=== PATIENT | male | born 1965 | race Caucasian/White ===

== ENCOUNTER → 2018-10-19 | Outpatient (CLI) | payer OTHER ==
--- NOTE | 2018-10-24 00:23 | SLEEPCENT ---
DATE OF PROCEDURE: 10/19/2018 ORDERED BY: Luciana Cardenas at the [facility]. Nocturnal polysomnography was performed for titration of pressure therapy in this patient with complex and obstructive sleep apnea syndrome. For testing, a [employer]ate3D Simplus full face mask of medium size was used. An initial pressure of 4 cm of water was applied to the circuit and the lights were extinguished. 7 hours and 33 minutes of data were reviewed. There were 415 minutes of sleep identified. Sleep latency was mildly prolonged at 22 minutes. Rapid eye movement (REM) latency was normal at 90 minutes. Sleep architecture was good with three REM cycles. Overall sleep efficiency was 93.7%. The electrocardiogram showed a sinus rhythm with an average heart rate of 62 beats per minute. Rate ranged 58-78. EEG showed some minor alpha intrusion into non-REM stages. No focal events were seen, and there were normal waveforms for awake and sleep. Persistence of respiratory events prompted an increase in pressure therapy and despite optimal mask fit and minimal air leak, the patient was changed to a bilevel device. The emergence of central apneas early in the study prompted the addition of a backup rate. Best sleep was seen on a bilevel device, inspiratory 15 over expiratory 11 with a backup rate of 8 . There was minimal activity in the limb EMG leads. Snoring was palliated with pressure therapy and remaining measures of sleep physiology were normal. IMPRESSION: Complex obstructive sleep apnea syndrome (G47.31, G47.33). RECOMMENDATIONS: Nightly use of pressure therapy using a bilevel device with backup rate, inspiratory of 15 over expiratory 11, backup rate 8. MTDD
== END ==
LOC: M SLEEP 19:47
PROVIDERS: ATTEND Nurse Practitioner Family
DX: G47.33 Obstructive sleep apnea (adult) (pediatric) (principal); G47.31 Primary central sleep apnea

== ENCOUNTER → 2019-09-17 | Outpatient (CLI) | payer OTHER ==
[~2019-09-17] MED LIST: E-Z-GAS II EFFERVESCENT PACKET (SODIUM BICARB./CITRIC ACID/SIMETHICONE) As Ordered ONE; E-Z-HD 98% w/w 340GM SUSP BTL As Ordered ONE; E-Z-PAQUE 96% w/w SUSP 176GM BTL As Ordered ONE
--- NOTE | 2019-09-17 19:52 | REP ---
Esophagram The procedure was performed under the direct supervision of Dr. Farias. The images were reviewed with Dr. Farias. A single view PA chest x-ray is submitted as a hockey scout film. The superior mediastinal structures are midline. The heart size is within normal limits. The lungs are clear. Liquid barium and gas producing granules were given in the erect position as well as liquid barium in the prone oblique positions in order to perform a double contrast esophagram examination. The oral and pharyngeal stages of deglutition are unremarkable. Note is made of degenerative disc disease with osteophyte formation especially at the C4-5 level which causes mild impression on the posterior esophagus. Esophageal transport is prompt and efficient and there is no esophagitis, stricture, mucosal ring or hiatal hernia. Gastroesophageal reflux is not demonstrated on this examination. Impression: Degenerative disc disease with osteophyte formation especially at the C4-5 level which causes mild impression on the posterior esophagus. Otherwise unremarkable esophagram examination. 0.6 minutes of fluoro time was utilized for this procedure. Electronically Signed by DAVID Duque 09/17/2019 04:13 P Electronically Signed by Jayson Farias MD 09/17/2019 07:42 P
== END ==
LOC: M RAD 08:15
PROVIDERS: ATTEND Otolaryngology
DX: K21.9 Gastro-esophageal reflux disease without esophagitis (principal)

== ENCOUNTER → 2019-12-02 | Outpatient (REF) | payer OTHER | LOC: M LAB REF 07:17 | PROVIDERS: ATTEND Dermatology | DX: D49.2 Neoplasm of unspecified behavior of bone, soft tissue, and skin (principal) | CPT/HCPCS: 11102; 11103; 88304; 88305; G0463 ==

== ENCOUNTER → 2019-12-17 | Outpatient (REF) | payer OTHER | LOC: M LAB REF 18:21 | PROVIDERS: ATTEND Dermatology | DX: C44.619 Basal cell carcinoma of skin of left upper limb, including shoulder (principal) ==

== ENCOUNTER → 2019-12-30 | Outpatient (REF) | payer OTHER | LOC: M LAB REF 10:32 | PROVIDERS: ATTEND Dermatology | DX: C76.0 Malignant neoplasm of head, face and neck (principal) ==

== ENCOUNTER → 2020-08-12 | Outpatient (CLI) | payer OTHER, MEDICARE ==
[~2020-08-12] MED LIST changes: +CHLO4TAB PO; +CLON0.25 PO; +CLON0.5T17 PO; +COLLCAP PO; +COLLPOW8 XX; +CVS1CAP2 PO; +DEPA500T2 PO; -E-Z-GAS II EFFERVESCENT PACKET (SODIUM BICARB./CITRIC ACID/SIMETHICONE) As Ordered ONE; -E-Z-HD 98% w/w 340GM SUSP BTL As Ordered ONE; -E-Z-PAQUE 96% w/w SUSP 176GM BTL As Ordered ONE; +ECHI80CA PO; +FISH1000 PO; +GEMF600T5 PO; +HAIRTAB10 PO; +LITH300C PO; +MCTPAK PO; +MELA1TAB19 PO; +MULT-90 PO; +OMEP40CA97 PO; +QUET200T2 PO; +ROSU40TA4 PO; +TRAZ1TAB10 PO; +[UNRECOGNIZED DRUG - OTHER] PO; +[UNRECOGNIZED DRUG - OTHER] PO; +[UNRECOGNIZED DRUG - OTHER] PO; +total restore; +vital reds
== END ==
LOC: M LABSMTC 10:15
PROVIDERS: ATTEND Anesthesiology
DX: Z20.828 Contact with and (suspected) exposure to other viral communicable diseases (principal)

== ENCOUNTER 2020-08-17 08:04 | Day surgery (SDC) | payer OTHER ==
[~2020-08-17] VITALS: Ht 167.6 cm; Wt 101.5 kg
[~2020-08-17 08:04] MED LIST changes: +LR 1,000 ML IV ONE
[2020-08-17] MEDS ORDERED: fentaNYL 250 MCG/5 ML INJECTION (J3010) As Ordered ONE (09:36)
[2020-08-17] MEDS ORDERED: LIDOCAINE 2% 100MG/5ML SDV (FOR ANES.) As Ordered ONE (09:36)
[2020-08-17] MEDS ORDERED: propofoL 200 MG/20 ML VIAL As Ordered ONE (09:36)
[2020-08-17] MEDS ORDERED: ROCURONIUM BROMIDE 50 MG/5 ML VIAL As Ordered ONE (09:36)
[2020-08-17] MEDS ORDERED: MIDAZOLAM INJ 2MG/2ML VIAL (J2250 PER 1MG) As Ordered ONE (09:36)
[2020-08-17] MEDS ORDERED: ONDANSETRON 4MG/2ML VIAL As Ordered ONE (09:36)
[2020-08-17] MEDS ORDERED: dexameTHASONE 4 MG/ML 1ML VIAL (J1100 PER 1MG) As Ordered ONE (09:36)
[2020-08-17] MEDS ORDERED: SUGAMMADEX SODIUM 500 MG/5 ML VIAL (BRIDION) As Ordered ONE (11:22)
[2020-08-17] MEDS ORDERED: fentaNYL 100 MCG/2 ML INJECTION (J3010) IV PRN (12:00)
[2020-08-17] MEDS ORDERED: ONDANSETRON 4MG/2ML VIAL IV PRN (12:00)
[2020-08-17] MEDS ORDERED: oxyCODONE 5MG TAB PO PRN (12:00)
[2020-08-17] MEDS ORDERED: LR 1,000 ML IV SCH ×2 (12:00→13:00)
[2020-08-17 13:15] VITALS: BP 160/79
--- NOTE | 2020-08-17 23:36 | ECGEPIP ---
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
== END 2020-08-17 13:34 | disposition home or self-care (01) ==
LOC: M SDC 08:04
PROVIDERS: ATTEND Otolaryngology
DX: J39.8 Other specified diseases of upper respiratory tract (principal); G47.30 Sleep apnea, unspecified; K21.9 Gastro-esophageal reflux disease without esophagitis; E78.5 Hyperlipidemia, unspecified; F31.9 Bipolar disorder, unspecified; F12.10 Cannabis abuse, uncomplicated; F17.210 Nicotine dependence, cigarettes, uncomplicated; Z79.899 Other long term (current) drug therapy; Z88.8 Allergy status to other drugs, medicaments and biological substances
CPT/HCPCS: 42140; 88304; 93005; J1100; J2250; J2405; J3010

== ENCOUNTER → 2022-02-11 | Outpatient (REF) | payer OTHER ==
[~2022-02-11] MED LIST changes: -LR 1,000 ML IV ONE; +OMEP40CA4 PO; -OMEP40CA97 PO
== END ==
LOC: M SFHCDERM 14:42
PROVIDERS: ATTEND Nurse Practitioner Family
DX: D22.5 Melanocytic nevi of trunk (principal)

== ENCOUNTER → 2024-11-28 | Outpatient (CLI) | payer OTHER ==
[~2024-11-28] MED LIST changes: -ROSU40TA4 PO; +ROSU40TA81 PO
== END ==
LOC: M CLY 14:24
PROVIDERS: ATTEND Physician Assistant
DX: M54.50 Low back pain, unspecified (principal); M25.512 Pain in left shoulder

== ENCOUNTER 2025-03-28 13:21 | Emergency (ER) | payer MEDICARE, OTHER ==
[~2025-03-28] VITALS: Ht 167.6 cm; Wt 102.0 kg
[2025-03-28 16:29] VITALS: BP 159/95; TEMP 98.3; O2SAT 100
[2025-03-28] MEDS: LIDOCAINE 1% MDV 20 ML VIAL SC ONE (18:15)
[2025-03-28] MEDS: TETANUS/DIPHTH/ACEL. PERTUSSIS 0.5 ML SYR IM.IMMUN ONE (18:30)
[2025-03-28] MEDS: CEPHALEXIN 500 MG CAP PO ONE (18:33)
[2025-03-28] MEDS ORDERED: CEPH500C PO (18:58)
== END 2025-03-28 19:15 | disposition home or self-care (01) ==
LOC: M ED 13:21
DX: S62.521B Displaced fracture of distal phalanx of right thumb, initial encounter for open fracture (principal); X58.XXXA Exposure to other specified factors, initial encounter; F10.10 Alcohol abuse, uncomplicated; F31.9 Bipolar disorder, unspecified; F17.200 Nicotine dependence, unspecified, uncomplicated; Y92.9 Unspecified place or not applicable; Y93.9 Activity, unspecified; Y99.9 Unspecified external cause status; Z88.8 Allergy status to other drugs, medicaments and biological substances; Z79.899 Other long term (current) drug therapy; Z79.2 Long term (current) use of antibiotics; Z23 Encounter for immunization

== ENCOUNTER 2025-04-04 08:42 | Day surgery (SDC) | payer MEDICARE ==
[~2025-04-04] VITALS: Ht 167.6 cm; Wt 103.4 kg
[~2025-04-04 08:42] MED LIST changes: +CEPH500C PO; +FENO145T7 PO; +VITALIQ60 MC; +ZINC100T3 PO
[2025-04-04] MEDS ORDERED: LR 1,000 ML IV SCH (09:10)
[2025-04-04] MEDS ORDERED: MIDAZOLAM INJ 2 MG/2 ML VIAL As Ordered ONE (09:30)
[2025-04-04] MEDS ORDERED: LIDOCAINE 2% 100 MG/5 ML SDV (FOR ANES.) As Ordered ONE (09:32)
[2025-04-04] MEDS ORDERED: dexAMETHasone 4 MG/ML 1 ML VIAL As Ordered ONE (09:33)
[2025-04-04] MEDS: LIDOCAINE 1% SDV 30 ML VIAL As Ordered ONE (09:45)
[2025-04-04] MEDS: ceFAZolin SOD 2 GM IV ONCE IV ONE (10:10)
[2025-04-04] MEDS ORDERED: traMADol 50 MG TAB PO ONE (11:20)
[2025-04-04] MEDS ORDERED: HYDROMORPHONE HCL 0.5 MG/0.5 ML SYRINGE IV PRN (11:20)
[2025-04-04 12:15] VITALS: BP 145/71; TEMP 97.1; O2SAT 98
== END 2025-04-04 12:50 | disposition home or self-care (01) ==
LOC: M SDC 08:42
PROVIDERS: ATTEND Orthopaedic Surgery Hand Surgery
DX: S62.524B Nondisplaced fracture of distal phalanx of right thumb, initial encounter for open fracture (principal); S61.101A Unspecified open wound of right thumb with damage to nail, initial encounter; X58.XXXA Exposure to other specified factors, initial encounter; Y93.9 Activity, unspecified; Y92.9 Unspecified place or not applicable; Z79.899 Other long term (current) drug therapy; Z87.891 Personal history of nicotine dependence
CPT/HCPCS: 11760; 26755; 76000; 93005; J0665; J0690; J1100; J2250; J3010

== ENCOUNTER → 2025-04-11 | Outpatient (CLI) | payer MEDICARE | LOC: M SOG 09:08 | PROVIDERS: ATTEND Physician Assistant | DX: S62.521B Displaced fracture of distal phalanx of right thumb, initial encounter for open fracture (principal); W18.30XA Fall on same level, unspecified, initial encounter; Y92.009 Unspecified place in unspecified non-institutional (private) residence as the place of occurrence of the external cause ==

== ENCOUNTER → 2025-04-29 | Outpatient (CLI) | payer MEDICARE | LOC: M SOG 07:27 | PROVIDERS: ATTEND Physician Assistant | DX: S62.521B Displaced fracture of distal phalanx of right thumb, initial encounter for open fracture (principal) ==